=== PATIENT | male | born 1975 | race African-American/Black ===

== ENCOUNTER 2020-05-29 07:05 | Outpatient (CLI) | payer OTHER ==
[2020-05-29 15:17] LABS: Hemoglobin 13.5 g/dL (14.0-18.0); Mean Corpuscular Hemoglobin 27.7 PG (27.0-33.0); Mean Platelet Volume 10.1 fl (7.4-10.4); Platelet Count 339 10x3/uL (130-400); RBC Distribution Width 13.5 % (11.5-14.5); Red Blood Cell (RBC) Count 4.87 10x6/uL (4.40-5.80); White Blood Cell (WBC) Count 9.3 10x3/uL (4.5-11.0)
[2020-05-29 15:43] LABS: Anion Gap 13 mmol/L (10-20); BUN (Urea Nitrogen) 12 mg/dL (8.9-20.6); Calc. Creatinine Clearance 0 mL/min (70-130); Calcium 8.8 mg/dL (7.8-10.44); Carbon Dioxide 26 mmol/L (22-29); Chloride 105 mmol/L (98-107); Estimated GFR-MDRD 76; Glucose 80 mg/dL (70-105); Potassium 3.7 mmol/L (3.5-5.1); Sodium 140 mmol/L (136-145)
[2020-05-29 15:44] LABS: PTT 23.9 sec (22.0-33.0); Prothrombin Time 10.4 sec (9.5-12.1)
[2020-05-31 18:13] LABS: SARS-CoV-2 MS2 Positive; SARS-CoV-2 N Gene Negative; SARS-CoV-2 S Gene Negative; SARS-CoV-2 by NAA Not Detected (NotDetected); SARS-CoV-2 orf1ab Negative
== END 2020-05-29 07:06 | disposition home or self-care (01) ==
LOC: LABBT 07:05
PROVIDERS: ATTEND Surgery
DX: Z01.818 Encounter for other preprocedural examination (principal); Z20.828 Contact with and (suspected) exposure to other viral communicable diseases
CPT/HCPCS: 80048; 85027; 85610; 85730; 87635; 93005; 93010; U0003

== ENCOUNTER 2020-06-02 06:23 | Day surgery (SDC) | payer OTHER ==
[2020-06-02] MEDS ORDERED: Thrombin 5000 UNITS/5 ML VIAL ONE (06:36)
[2020-06-02] MEDS ORDERED: Midazolam HCl 2 mg/2 ml Vial ONE (07:08)
[2020-06-02] MEDS ORDERED: Fentanyl 250 MCG/5 ML VIAL ONE (07:09)
[2020-06-02] MEDS ORDERED: Meperidine HCl/PF 25 MG/ML VIAL SLOW IVP PRN (09:57)
[2020-06-02] MEDS ORDERED: Promethazine HCl 25 MG/ML VIAL SLOW IVP PRN (09:57)
[2020-06-02] MEDS ORDERED: Promethazine HCl 25 MG/ML VIAL IM PRN (09:57)
[2020-06-02] MEDS ORDERED: HYDROmorphone 2 MG/ML VIAL SLOW IVP PRN (09:57)
[2020-06-02] MEDS ORDERED: Morphine Sulfate 2 MG/ML SYRINGE SLOW IVP PRN (09:57)
[2020-06-02] MEDS ORDERED: PACU-Morphine 4MG/ML VIAL SLOW IVP PRN (09:57)
[2020-06-02] MEDS ORDERED: Ondansetron HCl/PF 4 MG/2 ML Vial IVP PRN (09:57)
[2020-06-02] MEDS ORDERED: Mag-Al 1200 mg/1200 mg/30 ML UDCUP PO PRN (10:18)
[2020-06-02] MEDS ORDERED: Ondansetron PF 4 MG/2 ML Vial IVP PRN (10:18)
[2020-06-02] MEDS ORDERED: Acetaminophen 325 MG TAB PO PRN (10:18)
[2020-06-02] MEDS ORDERED: Promethazine 25 MG TAB PO PRN (10:18)
[2020-06-02] MEDS ORDERED: Bisacodyl 10 MG SUPP PR PRN (10:18)
[2020-06-02] MEDS ORDERED: traMADol HCl 50 MG TAB PO PRN (10:18)
[2020-06-02] MEDS ORDERED: Milk Of Magnesia 30 ML UDCUP PO PRN (10:18)
[2020-06-02] MEDS ORDERED: hydrALAZINE 20 MG/ML VIAL SLOW IVP PRN (10:22)
[2020-06-02] MEDS ORDERED: Fentanyl 100 MCG/2 ML VIAL ONE ×2 (10:24→11:03)
[2020-06-02] MEDS ORDERED: Ketorolac Tromethamine 30 MG/ML VIAL ONE (11:13)
[2020-06-02] MEDS ORDERED: Lidocaine 1% PF 5 ML VIAL ONE (11:13)
[2020-06-02] MEDS ORDERED: Rocuronium Bromide 10 MG/ML (10ML VIAL) ONE (11:13)
[2020-06-02] MEDS ORDERED: PROPOFOL 200 MG/20 ML VIAL ONE (11:13)
[2020-06-02] MEDS ORDERED: Dexamethasone 20 MG/5 ML VIAL ONE (11:13)
[2020-06-02] MEDS ORDERED: Ondansetron PF 4 MG/2 ML Vial ONE (11:13)
[2020-06-02] MEDS ORDERED: ePHEDrine 50 MG/ML VIAL ONE (11:13)
[2020-06-02] MEDS ORDERED: Glycopyrrolate 0.2 MG/ML 5 ML SYRINGE ONE (11:13)
[2020-06-02] MEDS ORDERED: Metoclopramide HCl 10 MG/2 ML VIAL ONE (11:13)
[2020-06-02] MEDS ORDERED: HYDROmorphone 0.5 MG/0.5 ML SYRINGE ONE ×2 (11:24→12:21)
--- NOTE | 2020-06-02 11:57 | OP ---
DATE OF PROCEDURE: 06/02/2020 MISSILE CONTROL PILOT: Tara Lopez PA-C PREPROCEDURE DIAGNOSES: Left L5 radiculopathy and history of left L5-S1 surgery. POSTPROCEDURE DIAGNOSES: Left L5 radiculopathy and history of left L5-S1 surgery. PROCEDURES PERFORMED: 1. Takeoff of left L5 skeletonization with decompression of the traversing left L5 nerve root starting at the left L4-L5 and then, extending out into the left L5 foramen with trans-facet diskectomy at the left L5 foramen. 2. Use of operative microscope for microdissection. DESCRIPTION OF PROCEDURE: After informed consent was obtained from the patient, the patient was brought to the OR. Proper patient, pause, and identification were carried out. The wound was then opened with a combination of sharp, monopolar, and blunt dissection. Exuberant scar tissue was identified from the bottom of L4 down to S1. I then brought the microscope in and a left L5 hemilaminotomy was performed, identified the takeoff of the traversing left L5 nerve roots starting at the bottom of the left L4-L5 segment and followed it around the left L5 pedicle out into its foramen and I then did a trans-facet diskectomy at the left L5-S1 segment with decompression of the traversing left L5 nerve root in its entirety. Copious irrigation occurred throughout as did maximizing hemostasis. There was no CSF leak. The wound was then closed in anatomic layers following sprinkling of vancomycin powder. The patient emerged from anesthesia. Job ID: [id number]
[2020-06-02 13:26] VITALS: BMI 45.5
[2020-06-02] MEDS: Sodium Chloride 0.9% 1,000 ML IV SCH (13:45)
[2020-06-02] MEDS: CEFAZOLIN 2 GM in Premix Bag 1 BAG IVPB SCH (15:47)
[2020-06-02] MEDS: HYDROcodone/Acetaminophen 7.5/325 mg Tablet PO PRN ×2 (15:47→21:10)
[2020-06-02] MEDS: tiZANidine HCl 4 MG TAB PO PRN (15:48)
[2020-06-02] MEDS: Morphine 2 MG/ML VIAL SLOW IVP PRN (19:59)
[2020-06-03] MEDS: CEFAZOLIN 2 GM in Premix Bag 1 BAG IVPB SCH (01:04)
[2020-06-03] MEDS: Sodium Chloride 0.9% 1,000 ML IV SCH ×2 (01:07→18:34)
[2020-06-03] MEDS: HYDROcodone/Acetaminophen 7.5/325 mg Tablet PO PRN ×6 (01:07→23:55)
[2020-06-03] MEDS: Morphine 2 MG/ML VIAL SLOW IVP PRN (02:25)
[2020-06-03] MEDS: tiZANidine HCl 4 MG TAB PO PRN ×2 (05:29→23:51)
[2020-06-03] MEDS: Hydrochlorothiazide 25 MG TAB PO SCH (09:00)
[2020-06-03] MEDS: Lisinopril 20 MG TAB PO SCH (09:00)
[2020-06-03] MEDS: Amlodipine 10 MG TAB PO SCH (09:01)
--- NOTE | 2020-06-03 09:39 | PRG ---
DATE OF SERVICE: 06/03/2020 Mr. Hair is postoperative day #1 following left L5 decompression. He states his leg pain has improved. He has mobilized a small distance in the snow and is just starting to taking oral intake. He would be able to ambulate and have effective oral pain control today. I would be fine with discharge if strength is excellent. Job ID: [id number]
[2020-06-03] MEDS: Acetaminophen/Codeine 30-300mg Tablet PO PRN ×3 (11:09→20:05)
[2020-06-03] MEDS: Terbinafine 250 MG TAB PO SCH (13:01)
[2020-06-04] MEDS: Sodium Chloride 0.9% 1,000 ML IV SCH (03:07)
[2020-06-04] MEDS: HYDROcodone/Acetaminophen 7.5/325 mg Tablet PO PRN ×3 (06:13→15:05)
[2020-06-04] MEDS: tiZANidine HCl 4 MG TAB PO PRN (08:20)
[2020-06-04] MEDS: Lisinopril 20 MG TAB PO SCH (08:20)
[2020-06-04] MEDS: Hydrochlorothiazide 25 MG TAB PO SCH (08:21)
[2020-06-04] MEDS: Amlodipine 10 MG TAB PO SCH (08:21)
[2020-06-04] MEDS: Terbinafine 250 MG TAB PO SCH (08:23)
[2020-06-04] MEDS: Acetaminophen/Codeine 30-300mg Tablet PO PRN (08:23)
--- NOTE | 2020-06-04 13:05 | DIS ---
DATE OF ADMISSION: 06/02/2020 DATE OF DISCHARGE: 06/04/2020 DIAGNOSES: 1. Lumbar herniated nucleus pulposus. 2. Lumbar radiculopathy. CONSULTS: None. PROCEDURES: Left L4-L5 trans-facet diskectomy with complete decompression of the left L5 nerve root on 06/02/2020. HOSPITAL COURSE: The patient underwent the above procedure and was admitted for postoperative pain control and monitoring. He is doing very well postoperative. He reports low back pain with movement, however his preoperative left leg paresthesias have improved. He demonstrates good strength throughout his bilateral lower extremity myotomes. He has been ambulating without difficulty. He is stable for discharge home today. Postoperative restrictions and wound care were discussed. The patient was provided with appropriate postoperative pain medications and muscle relaxants. Our team will arrange for outpatient followup in the upcoming weeks for reevaluation and wound check. The patient will call our office sooner with any questions or concerns. Job ID: [id number] MTDD
[2020-06-04 13:46] VITALS: BP 146/86; TEMP 98.2
== END 2020-06-04 15:38 | disposition home or self-care (01) ==
LOC: SDC 06:23 → SURG A 10:18 → SDC 06-04 15:38
PROVIDERS: ATTEND Surgery
PROC: 01NB0ZZ Release Lumbar Nerve, Open Approach (ICD-10-PCS; principal; 2020-06-02)
PROC: 0SB20ZZ Excision of Lumbar Vertebral Disc, Open Approach (ICD-10-PCS; principal; 2020-06-02)
DX: M51.16 Intervertebral disc disorders with radiculopathy, lumbar region (principal); I10 Essential (primary) hypertension; Z87.891 Personal history of nicotine dependence; Z79.899 Other long term (current) drug therapy
CPT/HCPCS: 76000; J0690; J1100; J1170; J1885; J2250; J2270; J2405; J2704; J2765; J3010; J3370; J3490